=== PATIENT | male | born 1980 | race African-American/Black ===

== ENCOUNTER → 2016-04-12 | Outpatient (CLI) | payer OTHER | LOC: M OUTALCOH 13:29 | PROVIDERS: ATTEND Psychiatry & Neurology Psychiatry | DX: Z13.9 Encounter for screening, unspecified (principal); F12.20 Cannabis dependence, uncomplicated ==

== ENCOUNTER 2016-04-24 13:30 | Outpatient (RCR) | payer MEDICAID | END 2016-04-25 | disposition home or self-care (01) | LOC: M OUTALCOH 13:30 | PROVIDERS: ATTEND Psychiatry & Neurology Psychiatry | DX: F12.20 Cannabis dependence, uncomplicated (principal); Z72.0 Tobacco use ==

== ENCOUNTER → 2018-07-26 | Outpatient (CLI) | payer OTHER | LOC: M OUTALCOH 08:46 | PROVIDERS: ATTEND Psychiatry & Neurology Psychiatry | DX: F12.10 Cannabis abuse, uncomplicated (principal) ==

== ENCOUNTER 2018-08-16 14:50 | Outpatient (RCR) | payer OTHER | END 2018-08-23 | LOC: M OUTALCOH 14:50 | PROVIDERS: ATTEND Psychiatry & Neurology Psychiatry | DX: F12.10 Cannabis abuse, uncomplicated (principal); F17.200 Nicotine dependence, unspecified, uncomplicated ==

== ENCOUNTER 2019-01-14 04:13 | Emergency (ER) | payer OTHER ==
[~2019-01-14] VITALS: Ht 180.3 cm; Wt 125.0 kg
[2019-01-14 06:07] LABS: CHLAMYDIA DNA AMPLIFICATION NEGATIVE (NEGATIVE); GC DNA AMPLIFICATION POSITIVE (NEGATIVE)
[2019-01-14] MEDS ORDERED: cefTRIAXone SOD 250 MG VIAL (J0696) IM ONE (07:15)
[2019-01-14] MEDS ORDERED: AZITHROMYCIN 250 MG TAB PO ONE (07:15)
[2019-01-14] MEDS ORDERED: LIDOCAINE 1% SDV 5 ML VIAL DILUENT ONE (07:15)
[2019-01-14 07:19] VITALS: BP 159/89
== END 2019-01-14 08:10 | disposition home or self-care (01) ==
LOC: M ED 04:13
DX: A54.01 Gonococcal cystitis and urethritis, unspecified (principal); F17.210 Nicotine dependence, cigarettes, uncomplicated
CPT/HCPCS: 87661; 96372; 99283; J0696